=== PATIENT | male | born 1950 | race Two or more races ===

== ENCOUNTER 2019-06-28 18:56 | Emergency (ER) | payer SELFPAY ==
[2019-06-28] MEDS ORDERED: IBUPROFEN 400 MG TABLET PO ONE (19:00)
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
[2019-06-28] MEDS ORDERED: EYE IRRIGATION SOLU. (SOD BOR/BORIC AC/H20/NACL) 118ML BTL OPTH ONE ×2 (20:05→20:06)
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
== END 2019-06-28 21:38 | disposition home or self-care (01) ==
LOC: ER 18:56
DX: S80.01XA Contusion of right knee, initial encounter (principal); M54.6 Pain in thoracic spine; M54.2 Cervicalgia; R10.11 Right upper quadrant pain; V47.5XXA Car driver injured in collision with fixed or stationary object in traffic accident, initial encounter; Y92.411 Interstate highway as the place of occurrence of the external cause; I10 Essential (primary) hypertension
CPT/HCPCS: 70450; 71250; 72125; 99284